=== PATIENT | male | born 1990 | race Caucasian/White ===

== ENCOUNTER 2019-07-18 11:23 | Emergency (ER) | payer MEDICARE, OTHER ==
[~2019-07-18] VITALS: Ht 180.3 cm; Wt 132.0 kg
[2019-07-18 11:26] VITALS: BP 127/85
== END 2019-07-18 12:44 | disposition home or self-care (01) ==
LOC: ED 12:30
DX: L03.115 Cellulitis of right lower limb (principal)
CPT/HCPCS: 99284